=== PATIENT | female | born 1950 | race Caucasian/White ===

== ENCOUNTER 2017-09-17 10:42 | Observation (INO) ==
[2017-09-17] MEDS ORDERED: *HR* Labetalol 20 MG/4 ML SYRINGE IVP ONE ×2 (10:56→11:25)
--- NOTE | 2017-09-17 11:01 | Emergency Department Note ---
Disposition Clinical Impression: Hypertensive urgency, Severe uncontrolled hypertension Disposition: Admitted As Inpatient Condition: Fair Time of Disposition: 12:34 (Dr Francois) Headache HPI - General Chief Complaint: ED Headache Stated Complaint: Numbness in feet and hands when woke up Time Seen by Provider: 09/17/17 10:53 Source: patient, EMS Mode of arrival: EMS Limitations: no limitations Nursing Notes Reviewed: Yes Vital Signs Reviewed: Yes - History of Present Illness Pt Subjective Complaint: other (She woke up with this morning with mild pressure to her head as well as disorientation and numbness and tingling to her extremities. The patient also states she is seeing black dots in her visual field.) Onset (ago): Just TAPE TRANSFERRER Onset description: awoke with symptoms Location: diffuse Pain Scale: 4 Quality: full Improves with: nothing Worsens with: none Context: other (The patient was recently seen in the emergency department secondary to elevated blood pressure. She was diagnosed within the past month of high blood pressure and was not on any medication. The patient has an appointment with her PCP this coming Wednesday. She was seen and evaluated by PCP with blood work the week before and was evaluated with a CT scan of the brain in the ED 2 days ago. The patient states she was well until this morning when she woke up. The patient went to [facility] yesterday and measured her blood pressure to be 180/89. The patient states she is medically compliant with the chlorthalidone given to her from the ED. The patient denies any other complaints.) Associated symptoms: Reports: vision changes, tingling. Denies: diaphoresis, fever, nausea, vomiting, neck stiffness, photophobia, phonophobia, rash, syncope Treatments prior to arrival: other (Chlorthalidone) - Related Data Previous Rx's Medication Instructions Recorded Chlorthalidone 25 mg PO DAILY #30 tablet 09/15/17 Allergies Allergy/AdvReac Type Severity Reaction Status Date / Time No Known Allergies Allergy Verified 07/02/15 16:19 All systems ED: reviewed and negative except as stated. Headache PMH - Past Medical History Medical history: Reports: cancer, hypertension, migraine Female Surgical History: Reports: , other (Excision of "carcinoma") Psychiatric history: Reports: anxiety [employer] history: Reports: bilateral tubal ligation - Social History Smoking Status: Former smoker Alcohol use: Reports: none Drug use: Reports: marijuana Physical Exam - General Limitations: no limitations General appearance: alert, in no apparent distress - Head Head exam: atraumatic - Eye Eye exam: Present: normal appearance, PERRL, EOMI, other (No papilledema bilaterally). Absent: scleral icterus, conjunctival injection - ENT ENT exam: normal exam, normal oropharynx, mucous membranes moist - Neck Neck exam: Present: normal inspection, full ROM, trachea midline - Chest Chest inspection: Present: normal inspection, symmetric chest wall rise - Respiratory Respiratory exam: Present: normal lung sounds bilaterally - Cardiovascular Cardiovascular exam: Present: regular rate, normal rhythm, normal heart sounds - Abdominal Exam Abdominal exam: Present: soft, Non-Tender. Absent: tenderness, distention, guarding, rebound, rigidity - Expanded Neurological Exam Patient oriented to: Present: person, place, time Speech: Present: fluid speech Cranial nerves: EOM function (II, III, IV, ): Normal Cerebellar function: normal vibratory/position Motor strength - LUE: 5/5 Motor strength - RUE: 5/5 Motor strength - LLE: 5/5 Motor strength - RLE: 5/5 Coma Scale Motor Response: Obeys Commands - Psychiatric Psychiatric exam: Present: normal affect, normal mood - Skin Skin exam: Present: warm, dry, intact, normal color Course Vital Signs Temperature 97.8 F 09/17/17 10:45 Pulse Rate 80 09/17/17 10:45 Respiratory Rate 14 09/17/17 10:45 Blood Pressure 222/117 09/17/17 10:45 O2 Sat by Pulse Oximetry 100 09/17/17 10:45 Temperature 97.8 F 09/17/17 10:45 Pulse Rate 65 09/17/17 12:54 Respiratory Rate 14 09/17/17 12:54 Blood Pressure 180/71 09/17/17 12:54 O2 Sat by Pulse Oximetry 100 09/17/17 12:54 Oxygen Delivery Oxygen Delivery Room Air Headache - MDM Narrative Medical decision making narrative: Patient presents with hypertensive urgency with associated blood pressure about 220 systolic and complains of headache with visual disturbance and tingling sensation to her extremities. The patient will be treated with IV labetalol and will proceed with diagnostic testing and blood work. The patient otherwise is neurologically intact with no complaints of chest pain, shortness of breath, abdominal pain. Patient's blood pressure was labile in the emergency department after initial treatments. The patient did not have any associated focal neurological deficits or chest pain throughout the ED course. I discussed appears presentation with the hospitalist who agrees to admit the patient for further evaluation and treatment of her current hypertensive urgency. She is amenable with current disposition and plan - Medical Records Medical records reviewed: Yes I reviewed the patient's medical records. - Lab Data Lab results reviewed: Yes I reviewed the patient's lab results. Result diagrams: 09/17/17 11:15 09/17/17 11:15 Lab Results 09/17/17 09/17/17 09/17/17 Range/Units 11:15 11:15 11:15 WBC 7.6 (4.3-11.1) K/mcL RBC 4.61 (3.82-4.97) M/mcL Hgb 13.3 (11.5-15.4) g/dL Hct 37.9 (35.3-44.9) % MCV 82.2 L (83.0-100.0) fL MCH 28.9 (28.0-33.3) pg MCHC 35.1 (31.6-35.5) g/dL RDW 13.3 (11.5-14.5) % Plt Count 344 (140-400) K/mcL MPV 10.2 (9.4-12.4) fL Immature Gran % 0.3 (0-4) % Seg Neutrophils % 70.5 % Lymphocytes % 20.0 % Monocytes % 6.8 % Eosinophils % 1.2 % Basophils % 1.2 % Neutrophils # 5.3 (1.6-8.9) K/mcL Lymphocytes # 1.5 (0.6-4.6) K/mcL Monocytes # 0.5 (0.0-1.3) K/mcL Eosinophils # 0.1 (0.0-0.6) K/mcL Basophils # 0.1 (0.0-0.2) K/mcL Sodium 138 (136-145) mEq/L Potassium 3.1 L (3.5-4.5) mEq/L Chloride 100 (98-109) mEq/L Carbon Dioxide 27 (19-29) mEq/L BUN 19 (7-20) mg/dL Creatinine 1.19 H (0.57-1.11) mg/dL Est GFR ( Amer) 55 L (> 60) Est GFR (Non-Af Amer) 46 L (> 60) BUN/Creatinine Ratio 16 (6-26) Glucose 106 H (70-99) mg/dL Calculated Osmolality 289 (280-300) Calcium 10.0 (8.6-10.8) mg/dL Total Bilirubin 0.7 (0.2-1.2) mg/dL AST 17 (5-34) Units/L ALT 11 (0-55) Units/L Alkaline Phosphatase 100 (38-126) Units/L Troponin I 0.02 (0-0.03) ng/mL Serum Total Protein 7.2 (6.0-8.3) g/dL Albumin 3.9 (3.5-5.0) g/dL Globulin 3.3 (2.4-3.5) g/dL Albumin/Globulin Ratio 1.2 (1.1-2.2) Urine Color (Yellow) Urine Clarity (Clear) Urine pH (5.0-8.0) pH Units Ur Specific [place] (1.010-1.025) Urine Protein (Neg-Trace) mg/dL Urine Glucose (UA) (Normal) mg/dL Urine Ketones (Negative) mg/dL Urine Blood (Negative) Urine Nitrite (Negative) Urine Bilirubin (Negative) Urine Urobilinogen (Normal) mg/dL Ur Leukocyte Esterase (Negative) Urine Microscopic RBC (0-3) per hpf Urine Microscopic WBC (0-3) per hpf Ur Squamous Epith Cells (None-Few) per lpf Amorphous Sediment (Few) Urine Bacteria (None-Few) per hpf Urine Mucus (Few) Ur Culture Indicated? (NO) 09/17/17 Range/Units 11:35 WBC (4.3-11.1) K/mcL RBC (3.82-4.97) M/mcL Hgb (11.5-15.4) g/dL Hct (35.3-44.9) % MCV (83.0-100.0) fL MCH (28.0-33.3) pg MCHC (31.6-35.5) g/dL RDW (11.5-14.5) % Plt Count (140-400) K/mcL MPV (9.4-12.4) fL Immature Gran % (0-4) % Seg Neutrophils % % Lymphocytes % % Monocytes % % Eosinophils % % Basophils % % Neutrophils # (1.6-8.9) K/mcL Lymphocytes # (0.6-4.6) K/mcL Monocytes # (0.0-1.3) K/mcL Eosinophils # (0.0-0.6) K/mcL Basophils # (0.0-0.2) K/mcL Sodium (136-145) mEq/L Potassium (3.5-4.5) mEq/L Chloride (98-109) mEq/L Carbon Dioxide (19-29) mEq/L BUN (7-20) mg/dL Creatinine (0.57-1.11) mg/dL Est GFR ( Amer) (> 60) Est GFR (Non-Af Amer) (> 60) BUN/Creatinine Ratio (6-26) Glucose (70-99) mg/dL Calculated Osmolality (280-300) Calcium (8.6-10.8) mg/dL Total Bilirubin (0.2-1.2) mg/dL AST (5-34) Units/L ALT (0-55) Units/L Alkaline Phosphatase (38-126) Units/L Troponin I (0-0.03) ng/mL Serum Total Protein (6.0-8.3) g/dL Albumin (3.5-5.0) g/dL Globulin (2.4-3.5) g/dL Albumin/Globulin Ratio (1.1-2.2) Urine Color Yellow (Yellow) Urine Clarity Clear (Clear) Urine pH 7.5 (5.0-8.0) pH Units Ur Specific [place] 1.025 (1.010-1.025) Urine Protein >=300 H (Neg-Trace) mg/dL Urine Glucose (UA) Normal (Normal) mg/dL Urine Ketones Trace H (Negative) mg/dL Urine Blood Small H (Negative) Urine Nitrite Negative (Negative) Urine Bilirubin Negative (Negative) Urine Urobilinogen Normal (Normal) mg/dL Ur Leukocyte Esterase Trace H (Negative) Urine Microscopic RBC 3-5 H (0-3) per hpf Urine Microscopic WBC 3-5 H (0-3) per hpf Ur Squamous Epith Cells Moderate H (None-Few) per lpf Amorphous Sediment Few (Few) Urine Bacteria Few (None-Few) per hpf Urine Mucus Few (Few) Ur Culture Indicated? YES A (NO) - Radiology Data Radiology results reviewed: Yes I reviewed the patient's radiology results. Chest CT 09/17/17 11:06 IMPRESSION: Mild emphysema with no acute thoracic abnormality. Mild aortic atherosclerosis. D/ / Adeel Samuel MD / Adeel Samuel MD Interpreting Provider: Adeel Samuel MD Head CT 09/17/17 11:47 IMPRESSION: No acute intracranial abnormality. D/ / Adeel Samuel MD / Adeel Samuel MD Interpreting Provider: Adeel Samuel MD - EKG Data EKG attestation: Yes I reviewed and interpreted this EKG. EKG shows normal: sinus rhythm, axis, intervals, QRS complexes, ST-T waves Critical Care Time Critical Care Time: Yes Total Critical Care Time: 30 Attestation: Critical care performed: Time is exclusive of separately billable procedures. Time includes: direct patient care, patient reassessment, coordination of patient care, interpretation of data (laboratory data, radiology data, and respiratory data), review of patient's medical records, medical consultation and documentation of patient care. Procedures included in critical care time: None Procedures excluded from critical care time:
[2017-09-17] MEDS ORDERED: Acetaminophen 325 MG TABLET PO ONE (11:06)
[2017-09-17 11:24] LABS: Basophils # 0.1 K/mcL (0.0-0.2); Basophils % 1.2 %; Eosinophils # 0.1 K/mcL (0.0-0.6); Eosinophils % 1.2 %; Hematocrit 37.9 % (35.3-44.9); Hemoglobin 13.3 g/dL (11.5-15.4); Immature Granulocytes % 0.3 % (0-4); Lymphocytes # 1.5 K/mcL (0.6-4.6); Mean Corpuscular HGB Conc 35.1 g/dL (31.6-35.5); Mean Corpuscular Hemoglobin 28.9 pg (28.0-33.3); Mean Corpuscular Volume 82.2 fL (83.0-100.0); Mean Platelet Volume 10.2 fL (9.4-12.4); Monocytes # 0.5 K/mcL (0.0-1.3); Monocytes % 6.8 %; Neutrophils # 5.3 K/mcL (1.6-8.9); Platelet Count 344 K/mcL (140-400); Red Blood Count 4.61 M/mcL (3.82-4.97); Red Cell Distribution Width 13.3 % (11.5-14.5); Segmented Neutrophils % 70.5 %
[2017-09-17] MEDS ORDERED: cloNIDine HCl 0.1 MG TABLET PO ONE (11:34)
[2017-09-17 11:39] LABS: Bilirubin,Urine Negative (Negative); Blood,Urine Small (Negative); Clarity,Urine Clear (Clear); Color,Urine Yellow (Yellow); Glucose,Urine (UA) Normal (Normal); Ketones,Urine Trace mg/dL (Negative); Leukocyte Esterase,Urine Trace (Negative); Nitrite,Urine Negative (Negative); PH,Urine 7.5 pH Units (5.0-8.0); Protein,Urine >=300 mg/dL (Neg-Trace); Specific Gravity,Urine 1.025 (1.010-1.025); Urobilinogen,Urine Normal (Normal)
[2017-09-17 11:44] LABS: Albumin 3.9 g/dL (3.5-5.0); Albumin/Globulin Ratio 1.2 (1.1-2.2); Bilirubin,Total 0.7 mg/dL (0.2-1.2); Globulin 3.3 g/dL (2.4-3.5); Potassium 3.1 mEq/L (3.5-4.5); Total Protein 7.2 g/dL (6.0-8.3)
[2017-09-17 11:47] LABS: Amorphous Sediment,Urine Few (Few); Bacteria,Urine Few per hpf (None-Few); Mucus,Urine Few (Few); Squamous Epithelial Cell,Urine Moderate per lpf (None-Few)
[2017-09-17] MEDS ORDERED: Ondansetron 4 MG/2 ML VIAL IVP ONE (12:04)
[2017-09-17] MEDS ORDERED: Ondansetron ODT 4 MG TAB.RAPDIS SL PRN (12:59)
[2017-09-17] MEDS ORDERED: Ondansetron 4 MG/2 ML VIAL IVP PRN (12:59)
[2017-09-17] MEDS ORDERED: Acetaminophen 325 MG TABLET PO PRN (12:59)
[2017-09-17] MEDS ORDERED: Naloxone 0.4 MG/ML INJ IVP PRN ×2 (12:59→15:25)
[2017-09-17] MEDS: cloNIDine HCl 0.1 MG TABLET PO SCH (16:41)
[2017-09-17] MEDS: 0.45 % Sodium Chloride w/KCl 20 MEQ/1,000 ML MLS IVC SCH (16:41)
--- NOTE | 2017-09-17 19:41 | Electrocardiograph Report ---
[address] [place] [address] Test Date: 2017-09-17 Pat Name: Patti Ruibn Department: [id number] Room: [facility] Gender: F Math Tutor: Romero : 1950 Requested By: Ford Azul Order Number: [id number] Reading MD: Michi Choi MD Measurements Intervals [place] Rate: 70 P: 55 ND: 140 QRS: 63 QRSD: 77 T: 51 QT: 414 QTc: 434 Interpretive Statements SINUS RHYTHM Electronically Signed On 09-17-2017 19:39:13 EST by Michi Choi MD
[2017-09-18] MEDS: cloNIDine HCl 0.1 MG TABLET PO SCH ×2 (00:05→08:56)
[2017-09-18 05:18] LABS: Basophils # 0.1 K/mcL (0.0-0.2); Basophils % 0.9 %; Eosinophils # 0.3 K/mcL (0.0-0.6); Eosinophils % 3.4 %; Hematocrit 31.3 % (35.3-44.9); Hemoglobin 10.6 g/dL (11.5-15.4); Immature Granulocytes % 0.3 % (0-4); Lymphocytes # 2.6 K/mcL (0.6-4.6); Lymphocytes % 33.7 %; Mean Corpuscular HGB Conc 33.9 g/dL (31.6-35.5); Mean Corpuscular Hemoglobin 28.7 pg (28.0-33.3); Mean Corpuscular Volume 84.8 fL (83.0-100.0); Mean Platelet Volume 10.8 fL (9.4-12.4); Monocytes # 0.6 K/mcL (0.0-1.3); Monocytes % 7.4 %; Neutrophils # 4.2 K/mcL (1.6-8.9); Platelet Count 264 K/mcL (140-400); Red Blood Count 3.69 M/mcL (3.82-4.97); Segmented Neutrophils % 54.3 %
[2017-09-18 05:45] LABS: Calcium 8.9 mg/dL (8.6-10.8); Potassium 3.4 mEq/L (3.5-4.5)
[2017-09-18] MEDS: 0.45 % Sodium Chloride w/KCl 20 MEQ/1,000 ML MLS IVC SCH (06:42)
[2017-09-18] MEDS: NIFEdipine XL (24 HR) 30 MG TAB.ER.24 PO SCH (08:56)
--- NOTE | 2017-09-18 14:07 | Internal Med History&Physical ---
Date of Encounter: 09/18/17 Time of Encounter: 13:25 Assessment and Plan (1) Hypertensive urgency Current visit: Yes Status: Acute She was started on labetalol and clonidine in the emergency room. Her pressures are now significantly improved. Discontinue chlorthalidone because of electrolyte imbalance and azotemia. Continue calcium jose j for now. (2) Hypokalemia Current visit: Yes Status: Acute Suspect due to diuretic use. Will give supplement potassium and recheck labs. (3) Azotemia Current visit: Yes Status: Acute Creatinine was normal at 0.97 on 06/02/2017. Will hold chlorthalidone and give IV fluids. Recheck labs and a.m. Internal Medicine - H&P: HPI Chief complaint: Weakness, hypertension Admitted From: Emergency Dept Plans for Post Hospital Care: Home History of present illness: Ms. Rubin is a 66 year old female who returned to emergency room September 17 complaining she had progressive weakness with nausea. She been seen 2 days previously and diagnosed with elevated blood pressure and started on chlorthalidone. She had taken 3 doses of medication and tolerated them well. She was evaluated again in emergency room and found to have markedly elevated blood pressure with hypokalemia and azotemia. She was admitted to [facility] floor for ongoing care needs. She reports no previous history of high blood pressure prior to being seen at the [facility] clinic approximately 3 weeks earlier. Her blood pressure was elevated there but it was elected to have her return to clinic in 2 weeks and recheck pressure before beginning medication. Denies chest pain IN heart failure DVT or pulmonary embolus. 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 She has not had any TIA symptoms. Past Med Surg Social Fam HX - Past Medical History Medical history: cancer, hypertension, migraine Psychiatric history: anxiety - Past Surgical History Surgical History: , other - Social History Smoking Status: Former smoker Smokeless Tobacco Status: No Alcohol use: none Drug use: marijuana Internal Medicine - H&P: Meds Chlorthalidone 25 mg PO DAILY #30 tablet 09/15/17 [Rx] 3 Allergy/AdvReac Type Severity Reaction Status Date / Time No Known Allergies Allergy Verified 07/02/15 16:19 All Systems PM: A 10-system review of systems was performed and is negative for pertinent findings except as documented above in the HPI. Review of systems: Gen.: She states her weight has decreased from usual weight of approximately 125 pounds to approximately 105 pounds over the last 5 weeks, unintentionally Cardiovascular: As per history of present illness Respiratory: She is smoked from age [age] never exceeding 1 pack per day. She does not wear home oxygen and has not been diagnosed with chronic lung disease GI: She denies disorders of her liver gallbladder or exocrine pancreas : She denies hematuria dysuria or kidney stones Neurologic: She denies large distribution strokes or seizures Endocrine: She denies diabetes thyroid disease or hyperlipidemia Hematology/oncology: She had skin cancer removed in the past. She has a diagnosis of anemia in early adulthood but states it resolved. She denies internal malignancies Psychiatric: She has anxiety but denies depression or other mental health issues Musk skeletal: She denies arthritis gout or other bone joint or muscle disorders. - Constitutional Vitals: Temp Pulse Resp BP Pulse Ox 97.8 F 65 16 132/64 98 09/18/17 10:29 09/18/17 10:29 09/18/17 10:29 09/18/17 10:29 09/18/17 10:29 Exam: Gen.: She is a well-developed lean female resting comfortably in bed who appears in no acute distress HEENT: Head is atraumatic and normocephalic. Eyes: EOMI. There is no scleral icterus. Mouth: Mucosa is moist. Neck: Supple and nontender. There is no thyromegaly or adenopathy noted. Heart: Regular without murmurs gallops or ectopics Lungs: No wheezes or crackles are heard. Abdomen: Soft and nontender. No masses or guarding are noted. Extremities: There is no cyanosis edema or clubbing noted. Dorsalis pedis and posttibial pulses are 1-2 over 2 bilaterally. Neurologic: Mental status: She is talkative and a good historian. Cranial nerves: Smile is symmetric. Forehead wrinkles bilaterally. Tongue protrudes midline. EOMI. Motor: There is no pronator drift. Cerebellar: Finger to nose is intact bilaterally. Skin: Warm and dry Internal Med - H&P Results - Labs CBC & Chem 7: 09/18/17 05:01 09/18/17 05:01 Labs: Short CBC 09/18/17 Range/Units 05:01 WBC 7.7 (4.3-11.1) K/mcL Hgb 10.6 L D (11.5-15.4) g/dL Hct 31.3 L (35.3-44.9) % Plt Count 264 (140-400) K/mcL Neutrophils # 4.2 (1.6-8.9) K/mcL BMP 09/18/17 05:01 Sodium 139 Potassium 3.4 L Chloride 105 Carbon Dioxide 27 BUN 22 H Creatinine 1.44 H Glucose 100 H Calcium 8.9
[2017-09-19 06:05] LABS: Basophils # 0.1 K/mcL (0.0-0.2); Basophils % 1.2 %; Eosinophils # 0.4 K/mcL (0.0-0.6); Eosinophils % 4.5 %; Hemoglobin 11.1 g/dL (11.5-15.4); Immature Granulocytes % 0.3 % (0-4); Lymphocytes # 2.2 K/mcL (0.6-4.6); Mean Corpuscular HGB Conc 33.6 g/dL (31.6-35.5); Mean Corpuscular Hemoglobin 28.9 pg (28.0-33.3); Mean Corpuscular Volume 85.9 fL (83.0-100.0); Monocytes # 0.6 K/mcL (0.0-1.3); Monocytes % 7.4 %; Neutrophils # 4.5 K/mcL (1.6-8.9); Platelet Count 275 K/mcL (140-400); Red Blood Count 3.84 M/mcL (3.82-4.97); Red Cell Distribution Width 14.4 % (11.5-14.5); Segmented Neutrophils % 57.6 %
[2017-09-19 06:18] VITALS: BP 173/72
[2017-09-19 06:27] LABS: BUN/Creatinine Ratio 15 (6-26); Blood Urea Nitrogen 16 mg/dL (7-20); Calcium 9.2 mg/dL (8.6-10.8); Carbon Dioxide 29 mEq/L (19-29); Chloride 106 mEq/L (98-109); Glucose 90 mg/dL (70-99); Osmolality,Calculated 295 (280-300); Sodium 142 mEq/L (136-145); eGFR For African Americans > 60 (> 60); eGFR For Non-African Americans 51 (> 60)
[2017-09-19] MEDS: NIFEdipine XL (24 HR) 30 MG TAB.ER.24 PO SCH (08:15)
--- NOTE | 2017-09-19 10:23 | Discharge Summary ---
Date of Encounter: 09/19/17 Time of Encounter: 10:10 - Discharge Diagnosis (1) Hypertensive urgency Priority: Primary Status: Resolved (2) Hypokalemia Priority: Secondary Status: Resolved (3) Azotemia Priority: Secondary Status: Acute - Discharge Medications Prescriptions: Lisinopril [Zestril] 10 mg PO DAILY #30 tablet NIFEdipine XL (24 HR) [Procardia XL] 30 mg PO DAILY #30 tab.er.24 Home Medications: Lisinopril [Zestril] 10 mg PO DAILY #30 tablet 09/19/17 [Rx] NIFEdipine XL (24 HR) [Procardia XL] 30 mg PO DAILY #30 tab.er.24 09/19/17 [Rx] Allergies/Adverse Reactions: 3 Allergy/AdvReac Type Severity Reaction Status Date / Time No Known Allergies Allergy Verified 07/02/15 16:19 Procedures/tests Complete & Pending: Procedures Performed prior 72 hours Category Date Time Status CT abd pelvis wo no iv no oral [CT] Routine Cat Scan 09/18/17 13:55 Completed Date of admission: 09/17/17 12:38 Primary care physician: Walter Goins MD Consults: 09/18/17 07:36 Consult to Nutrition [CONS] Routine Comment: Consulting Provider: NUTRITION Reason for Dietary Consult: Other Other:: weight loss 128 to 105 in 5 weeks - Patient Status Disposition: Home, Self-Care Condition: Fair Functional capacity at discharge: independent ambulation Overall status at discharge: patient is progressing back to baseline - Discharge Instructions Follow Up With: Walter Goins MD [Primary Care Provider] - 1 week - Diet and Activity Activity: resume usual activities as tolerated Diet: advance to your usual diet Hospital course: Ms. Rubin is a 67 year old female who returned to emergency room September 17 complaining she had progressive weakness with nausea. She been seen 2 days previously and diagnosed with elevated blood pressure and started on chlorthalidone. She had taken 3 doses of medication and tolerated them well. She was evaluated again in emergency room and found to have markedly elevated blood pressure with hypokalemia and azotemia. She was admitted to [facility] floor for ongoing care needs. Initial orders were written by the emergency room physician. I saw her on September 18 and performed a history and physical. She was given labetalol and clonidine in the emergency room. Chlorthalidone was discontinued because of electrolyte imbalance and azotemia. She had significant improvement in her blood pressures. She will continue with Procardia XL and lisinopril at home. She will remain off chlorthalidone. Supplemental potassium was given and hypokalemia resolved. Azotemia improved with BUN and creatinine 16 and 1.07 respectively with estimated GFR of 51 on day of discharge. Her PCP can monitor labs. Chest CT in emergency room and abdominal /pelvic CT done after admission showed no pathology concerning for malignancy to explain weight loss. She will follow with her PCP Dr. Goins within 1 week. - Time Spent with Patient Total time spent providing and/or coordinating discharge services: - Constitutional Vitals: Temp Pulse Resp BP Pulse Ox 98.5 F 68 16 173/72 100 09/19/17 06:16 09/19/17 06:16 09/19/17 06:16 09/19/17 06:16 09/19/17 06:16
== END 2017-09-19 11:15 | disposition home or self-care (01) ==
LOC: INPPIK 10:42 → EMEROOPIK 10:42 → INPPIK 13:00
PROVIDERS: ADMIT Internal Medicine; ATTEND Internal Medicine